=== PATIENT | female | born 1950 | race Caucasian/White ===

== ENCOUNTER 2020-08-15 03:20 | Inpatient (IN) | payer MEDICARE, BC ==
[~2020-08-15] VITALS: Ht 157.5 cm; Wt 81.6 kg
[2020-08-15 04:05] VITALS: BP 136/77
[2020-08-15] MEDS ORDERED: FLUO20CA42 PO (04:08)
[2020-08-15] MEDS ORDERED: SITA100T PO (04:08)
[2020-08-15] MEDS ORDERED: LEVO25TA9 PO (04:09)
[2020-08-15] MEDS ORDERED: OLAN5TAB3 PO (04:11)
[2020-08-15] MEDS ORDERED: BENZ1TAB7 PO (04:12)
[2020-08-15] MEDS ORDERED: QUET50TA PO (04:13)
[2020-08-15] MEDS ORDERED: BLOOD SUGAR DIAGNOSTIC 1 EACH STRIP IN ONE (04:30)
[2020-08-15] MEDS ORDERED: MAGNESIUM HYDROXIDE 30 ML UDC PO PRN (04:30)
[2020-08-15] MEDS ORDERED: MAG HYDROX/AL HYDROX/SIMETH 30 ML UDC PO PRN (04:30)
[2020-08-15] MEDS ORDERED: ACETAMINOPHEN 325 MG TABLET PO PRN (04:30)
--- NOTE | 2020-08-15 04:49 | NUR ---
ADMISSION NOTES: ADMITTED THIS 70Y/O FEMALE PATIENT DIRECT ADMIT FROM [facility], PT. ADMITTED TO GPS ON HOLD 5149 DTS, SHE WANTS TO KILL HER SELF BY USING A SCALPEL , PT. HAS CONSERVATOR BUT IN HOLD 5149 ,UPON FACE TO FACE ASSESSMENT PATIENT IS A&O X 4 DEPRESSED ,FLAT AFFECT ,GUARDED, DISHEVELLED , COOPERTIVE, DENIES SI /HI AT THIS TIME, PT. IS POOR HISTORIAN, POOR INSIGHT ,POOR JUDGEMENT , PT. REFUSED TO SIGNS ADMISSION CONSENT PAPERS ,DUE TO TIRED , BOTH MD AWARE AND NOTIFIED OF THE ADMISSION, BELONGINGS CONTRABAND WERE DONE ,PT. RIGHTS DISCUSS BY CLIENT SALES AND SERVICE OFFICER , PROVIDE THE PT. WITH HANDBOOK, AND MEDICATIONS GUIDE, ENVIRONMENTAL SAFETY CHECK DONE, ENCOURAGED PT. VERBALIZED ANY FEELING CONCERN TO STAFF, ORIENT TO UNIT POLICY, NO ACUTE DISTRESS NOTED,VITAL SIGNS WNL ,DENIES ANY PAIN AT THIS TIME,WILL CONTINUE TO MONITOR FOR Q15 SAFETY AND BEHAVIOR.
[2020-08-15 08:00] VITALS: BP 137/72
[2020-08-15] MEDS: LORAZEPAM 1 MG TABLET PO PRN (08:11)
--- NOTE | 2020-08-15 08:12 | NUR ---
RN NOTE- PT W ANXIETY RESTLESSNESS. ATIVAN 1 MG GIVEN . NOTIFIED MD OF MED RECON NEEDS COMPLETION
--- NOTE | 2020-08-15 09:00 | NUR ---
RN NOTE- PT ALERT VISIBLE ON UNIT, BLUNTED AFFECT, INTERACTIVE POOR EYE CONTACT ANXIOUS AT TIMES VAGUE +SI THOUGH DENYING PRESENTLY . STATES "I THINK ABOUT IT" MONITORING ILEANA SAFETY
[2020-08-15] MEDS: DIVALPROEX SODIUM 250 MG TABLET.DR PO SCH ×2 (12:54→16:21)
[2020-08-15] MEDS: ARIPIPRAZOLE 5 MG TABLET PO SCH (12:54)
--- NOTE | 2020-08-15 15:54 | NUR ---
Point of Contact: SW called the pt.'s sister& conservator of the person, Bernie Gonzalez [phone] to gather collateral information. Patient's Conservator of finances is Tiara Rodrigues, . Per Bernie, pt. has a Therapist, Hetal Mckeon [phone] who would like to remain informed. Per Bernie pt.s PCP is Ravi Lozoya [phone]. Pt.s Psychiatrist is Addy Garcia [phone]. Per Bernie, she has provided psychiatrist contact info to Dr. Suarez. Bernie stated she will bring copy of [facility] paperwork today when she visits. Noted. Charge Nurse made aware.
--- NOTE | 2020-08-15 15:57 | NUR ---
APS Intake # [id number]: SW made APS report for self-neglect (incident # [id number]) on 3:10 pm 08/15/2020. Pt.'s conservator informed SW that the pt. has recently been starving herself and stated to her MD, Ravi Lozoya [phone] that she has been having trouble making herself drink water. Per Bernie, the pt. asked her to bring bottle of laxatives and weight loss pills from home. Per Bernie,the pt. was hospitalized in 2011 for DTS as she starved herself and went from weighing 200 lbs. to 125 lbs. SW notified pt.'s nurse for SANDER.
--- NOTE | 2020-08-15 15:57 | NUR ---
Initial Discharge plan: The pt. currently lives alone at home [[address] [address]; [phone]] and plans to return there once ready for D/C. FINA spoke to the pt.'s conservator of the person, Bernie Carlos [phone] who is agreeable to the pt. returning to live at home alone. Bernie states she visits pt. everyday. FINA will continue to collaborate with IDT to ensure safe & proper discharge planning.
[2020-08-15 16:00] VITALS: BP 122/66
--- NOTE | 2020-08-15 16:34 | NUR ---
RN NOTIFIED THAT PT HAS BEEN CALLING [employer] TO BRING LAXATIVES WHICH SEE'S TAKEN IN PAST. BE AWARE IF [employer] BRING THINGS IN TO WATCH FOR THIS
[2020-08-15] MEDS: LEVOTHYROXINE SODIUM 25 MCG TABLET PO SCH (17:47)
[2020-08-15 19:59] VITALS: BP 127/62
[2020-08-15] MEDS: ZOLPIDEM TARTRATE 5 MG TABLET PO PRN (22:09)
--- NOTE | 2020-08-15 22:10 | NUR ---
RN NOTES: INSOMNIA PT.C/O UNABLE TO SLEEP, AMBIEN 5 MG PO PRN GIVEN PER PT. REQUEST, WILL CONTINUE TO MONITOR.
[2020-08-16 06:56] LABS: BASOPHILS % (AUTO) 0.3 % (0.0-2.0); EOSINOPHILS % (AUTO) 1.4 % (0.0-6.0); HEMATOCRIT 40 % (33-45); HEMOGLOBIN 13.7 g/dL (11.5-14.8); LYMPHOCYTES # (AUTO) 1.8 /CMM (0.8-4.8); LYMPHOCYTES % (AUTO) 27.2 % (20.0-44.0); MEAN CORPUSCULAR HGB CONC 34 g/dl (31.0-36.0); MEAN CORPUSCULAR VOLUME 88 fL (82-100); MONOCYTES # (AUTO) 0.5 /CMM (0.1-1.30); MONOCYTES % (AUTO) 7.6 % (2.0-12.0); NEUTROPHILS # (AUTO) 4.2 /CMM (1.8-8.9); NEUTROPHILS % (AUTO) 63.5 % (43.0-81.0); PLATELET COUNT (AUTO) 238 /CMM (150-450); WHITE BLOOD COUNT (AUTO) 6.6 K/uL (4.3-11.0)
[2020-08-16 07:10] LABS: CALCIUM, SERUM 8.8 mg/dL (8.5-10.1); CARBON DIOXIDE 28 mmol/L (21-32); CHLORIDE 102 mmol/L (98-107); CHOLESTEROL 188 mg/dL (<200); CREATININE 0.5 mg/dL (0.6-1.3); GLUCOSE 128 mg/dL (74-106); HDL CHOLESTEROL 50 mg/dL (40-60); LDL 103 mg/dL (0-99); SODIUM SERUM 139 mmol/L (136-145); TRIGLYCERIDES 115 mg/dL (30-150); UREA NITROGEN, BLOOD 9 mg/dL (7-18)
[2020-08-16] MEDS: LEVOTHYROXINE SODIUM 25 MCG TABLET PO SCH (07:59)
[2020-08-16 08:00] VITALS: BP 128/74
[2020-08-16] MEDS: DIVALPROEX SODIUM 250 MG TABLET.DR PO SCH ×3 (08:07→16:34)
[2020-08-16] MEDS: ARIPIPRAZOLE 5 MG TABLET PO SCH (08:07)
[2020-08-16] MEDS: LINAGLIPTIN 5 MG TABLET PO SCH (08:20)
[2020-08-16 16:00] VITALS: BP 131/69
[2020-08-16] MEDS: Z GUARD REMEDY 2 OZ OINT TP SCH ×2 (16:18→20:46)
--- NOTE | 2020-08-16 17:59 | NUR ---
RN-CO: REMINDED DR PARKER TO FAX THE CONSENT FOR PROZAC.
[2020-08-16] MEDS: FLUOXETINE HCL 20 MG CAPSULE PO SCH (18:33)
[2020-08-16 20:04] VITALS: BP 137/71
[2020-08-16] MEDS: ZOLPIDEM TARTRATE 5 MG TABLET PO PRN (22:35)
--- NOTE | 2020-08-16 22:36 | NUR ---
RN NOTES: INSOMNIA PT.C/O UNABLE TO SLEEP, AMBIEN 5 MG PO PRN GIVEN PER PT. REQUEST, WILL CONTINUE TO MONITOR.
[2020-08-17 08:00] VITALS: BP 145/77
[2020-08-17] MEDS: Z GUARD REMEDY 2 OZ OINT TP SCH ×2 (08:09→21:29)
[2020-08-17] MEDS: LINAGLIPTIN 5 MG TABLET PO SCH (08:09)
[2020-08-17] MEDS: FLUOXETINE HCL 20 MG CAPSULE PO SCH (08:09)
[2020-08-17] MEDS: DIVALPROEX SODIUM 250 MG TABLET.DR PO SCH ×3 (08:09→16:33)
[2020-08-17] MEDS: LEVOTHYROXINE SODIUM 25 MCG TABLET PO SCH (08:09)
[2020-08-17] MEDS: ARIPIPRAZOLE 5 MG TABLET PO SCH (08:09)
[2020-08-17 16:00] VITALS: BP 139/71
[2020-08-17 20:00] VITALS: BP 147/78
[2020-08-17] MEDS: ZOLPIDEM TARTRATE 5 MG TABLET PO PRN (22:58)
--- NOTE | 2020-08-17 22:59 | NUR ---
GPS-RN NOTES: INSOMNIA PATIENT C/O INABILITY TO SLEEP. PRN AMBIEN 5MG PO GIVEN PER PT'S REQUEST. WILL CONTINUE TO MONITOR.
[2020-08-18 08:00] VITALS: BP 159/80
[2020-08-18] MEDS: LEVOTHYROXINE SODIUM 25 MCG TABLET PO SCH (08:09)
[2020-08-18] MEDS: DIVALPROEX SODIUM 250 MG TABLET.DR PO SCH ×3 (08:09→17:30)
[2020-08-18] MEDS: LINAGLIPTIN 5 MG TABLET PO SCH (08:09)
[2020-08-18] MEDS: FLUOXETINE HCL 20 MG CAPSULE PO SCH (08:09)
[2020-08-18] MEDS: ARIPIPRAZOLE 5 MG TABLET PO SCH (08:09)
[2020-08-18] MEDS: Z GUARD REMEDY 2 OZ OINT TP SCH ×2 (08:11→21:24)
--- NOTE | 2020-08-18 11:16 | NUR ---
gps well logging operator mud analysis: psych f/u seen by dr. grider at this time.
[2020-08-18 16:00] VITALS: BP 150/86
[2020-08-18] MEDS: BENZTROPINE MESYLATE (1 MG) 1 MG TABLET PO SCH (17:30)
[2020-08-18 20:00] VITALS: BP 163/76
[2020-08-18] MEDS: LORAZEPAM 1 MG TABLET PO PRN (20:07)
--- NOTE | 2020-08-18 20:10 | NUR ---
GPS-RN NOTES: ANXIETY PATIENT C/O FEELING ANXIOUS. PRN ATIVAN 1MG PO GIVEN. WILL CONTINUE TO MONITOR FOR PATIENT'S SAFETY.
[2020-08-18 21:00] VITALS: BP 142/86
[2020-08-19 08:00] VITALS: BP 123/78
[2020-08-19] MEDS: FLUOXETINE HCL 20 MG CAPSULE PO SCH (08:13)
[2020-08-19] MEDS: DIVALPROEX SODIUM 250 MG TABLET.DR PO SCH ×3 (08:13→17:24)
[2020-08-19] MEDS: LINAGLIPTIN 5 MG TABLET PO SCH (08:13)
[2020-08-19] MEDS: LEVOTHYROXINE SODIUM 25 MCG TABLET PO SCH (08:13)
[2020-08-19] MEDS: ARIPIPRAZOLE 5 MG TABLET PO SCH (08:13)
[2020-08-19] MEDS: BENZTROPINE MESYLATE (1 MG) 1 MG TABLET PO SCH ×2 (08:14→17:23)
[2020-08-19] MEDS: Z GUARD REMEDY 2 OZ OINT TP SCH ×2 (08:16→21:24)
[2020-08-19] MEDS ORDERED: CLOTRIMAZOLE 1% 15 GM TUBE TP SCH (09:00)
--- NOTE | 2020-08-19 09:57 | NUR ---
WOUND CARE CONSULT: PT PRESENTS WITH VERY RED RASH AND IRRITATED SKIN TO ABDOMINAL/GROIN FOLDS, PRESENT ON ADMISSION. RECOMMENDATIONS MADE FOR SKIN CARE AND PROTECTION. DISCUSSED WITH NURSING STAFF. PT IS AMBULATORY. IN AGREEMENT WITH PLAN OF CARE. Addendum: 08/19/20 at 0958 by SANTANA TENA WNDNU Amended: Links added.
--- NOTE | 2020-08-19 10:14 | NUR ---
Conservator Contact: FINA called the pt's sister and conservator of the person, Bernie Gonzalez ([phone]), and discussed the pts care. FINA provided her with information about the pts behaviors and went over her diagnosis and the pts medications. FINA confirmed that the plan is for the pt to return home.
--- NOTE | 2020-08-19 11:02 | NUR ---
Outpatient Psychiatrist Contact: SW received a call from Dr. Schmitz's office ([phone]) stating that a call needs to be scheduled with the pts treating psychiatrist as making contact has been difficult. SW stated that she would speak to the MD and call back regarding availability.
[2020-08-19] MEDS: CLOTRIMAZOLE/BETAMETASONE DIPROPIONATE 15 GM TUBE TP SCH (18:00)
--- NOTE | 2020-08-19 18:36 | NUR ---
med compliant,sister in to visit.
[2020-08-19 20:00] VITALS: BP 154/84
[2020-08-19] MEDS: ZOLPIDEM TARTRATE 5 MG TABLET PO PRN (21:50)
--- NOTE | 2020-08-19 21:58 | NUR ---
GPS-RN NOTES: INSOMNIA PATIENT C/O INABILITY TO SLEEP. PRN AMBIEN 5MG PO GIVEN PER PT'S REQUEST. WILL CONTINUE TO MONITOR.
--- NOTE | 2020-08-20 07:30 | NUR ---
PT RECEIVED RESTING COMFORTABLY IN BED. NO S/S OR C/O PAIN OR DISTRESS NOTED. WILL CONTINUE PLAN OF CARE.
[2020-08-20 08:00] VITALS: BP 150/94
[2020-08-20] MEDS: BENZTROPINE MESYLATE (1 MG) 1 MG TABLET PO SCH ×2 (08:11→16:30)
[2020-08-20] MEDS: FLUOXETINE HCL 20 MG CAPSULE PO SCH (08:11)
[2020-08-20] MEDS: ARIPIPRAZOLE 5 MG TABLET PO SCH (08:11)
[2020-08-20] MEDS: DIVALPROEX SODIUM 250 MG TABLET.DR PO SCH ×3 (08:11→16:30)
[2020-08-20] MEDS: LEVOTHYROXINE SODIUM 25 MCG TABLET PO SCH (08:11)
[2020-08-20] MEDS: LINAGLIPTIN 5 MG TABLET PO SCH (08:11)
[2020-08-20] MEDS: CLOTRIMAZOLE/BETAMETASONE DIPROPIONATE 15 GM TUBE TP SCH ×2 (08:18→16:34)
[2020-08-20] MEDS: Z GUARD REMEDY 2 OZ OINT TP SCH ×2 (08:18→21:26)
[2020-08-20 16:00] VITALS: BP 130/75
--- NOTE | 2020-08-20 18:07 | NUR ---
CHANGE OF SHIFT REPORT PT RESTING COMFORTABLY IN BED. NO S/S OR C/O PAIN OR DISTRESS NOTED. PT KEPT CLEAN, AND COMFORTABLE. NO SIGNIFICANT CHANGES SINCE PREVIOUS SHIFT.
--- NOTE | 2020-08-20 19:30 | NUR ---
GPS RN NOTE, RECEIVED PATIENT AWAKE AND IN BED, NO S/S OR COMPLAINTS OF PAIN AT THIS TIME. PATIENT IS DISPLAYING NO S/S OF APPARENT DISTRESS AT THIS TIME. PATIENT BREATHING IS UNLABORED WITH EQUAL RISE AND FALL OF THE CHEST. PATIENT IS ALERT AND ORIENTED X 3 ON ROOM AIR WITH A SPO2 97%. PATIENT IS COMPLIANT WITH MEDICATIONS, FORGETFUL, ANXIOUS, MAKES NEEDS KNOWN, AND NEEDS REDIRECTION. PATIENT DENIES SUICIDAL AND HOMICIDAL IDEATIONS AT THIS TIME. PATIENT ASSISTED WITH TURNING AND REPOSITIONING Q2HR AND PRN FOR COMFORT AND CIRCULATION. PATIENT HAS NO NEEDS AT THIS TIME. PATIENT EDUCATED ON THE USE OF THE CALL ESCUDERO. PATIENT BED SIDE RAILS UP X 2 FOR SAFETY. PATIENT BED IS LOCKED, LOW, WITH BED ALARM ON. WILL CONTINUE TO MONITOR THIS PATIENT Q15 MINUTES WITH THE HELP OF STAFF TO MAINTAIN SAFETY.
[2020-08-20 20:00] VITALS: BP 140/72
[2020-08-20 20:59] VITALS: BP 140/72
[2020-08-21] MEDS: ZOLPIDEM TARTRATE 5 MG TABLET PO PRN ×2 (00:17→23:58)
--- NOTE | 2020-08-21 00:17 | NUR ---
MS RN NOTES C/O INSOMNIA,AMBIEN 5MG ,1 TAB PO GIVEN ORDERED AND PER PATIENT REQUEST.WILL MONITOR HOURS OF SLEEP.
--- NOTE | 2020-08-21 06:35 | NUR ---
GPS RN NOTES CALM AND COOPERATIVE THRU OUT SHIFT SLEEP WELL WITH AMBIEN 5MG
[2020-08-21 08:00] VITALS: BP 134/75
[2020-08-21] MEDS: LINAGLIPTIN 5 MG TABLET PO SCH (08:14)
[2020-08-21] MEDS: BENZTROPINE MESYLATE (1 MG) 1 MG TABLET PO SCH ×2 (08:14→17:08)
[2020-08-21] MEDS: ARIPIPRAZOLE 5 MG TABLET PO SCH (08:14)
[2020-08-21] MEDS: DIVALPROEX SODIUM 250 MG TABLET.DR PO SCH ×3 (08:14→17:08)
[2020-08-21] MEDS: FLUOXETINE HCL 20 MG CAPSULE PO SCH (08:14)
[2020-08-21] MEDS: LEVOTHYROXINE SODIUM 25 MCG TABLET PO SCH (08:14)
[2020-08-21] MEDS: CLOTRIMAZOLE/BETAMETASONE DIPROPIONATE 15 GM TUBE TP SCH ×2 (09:20→17:08)
[2020-08-21] MEDS: Z GUARD REMEDY 2 OZ OINT TP SCH ×2 (09:20→20:51)
--- NOTE | 2020-08-21 14:41 | NUR ---
Conservator Contact: SW called the pt's sister and conservator of the person, Bernie Nikhilraj ([phone]), and went over the pts current treatment and stated that there is no discharge date as of right now.
[2020-08-21 16:00] VITALS: BP 131/72
[2020-08-21 20:00] VITALS: BP 153/72
[2020-08-21 20:07] VITALS: BP 153/72
--- NOTE | 2020-08-21 23:59 | NUR ---
RN NOTES: INSOMNIA PT.C/O UNABLE TO SLEEP, AMBIEN 5 MG PO PRN GIVEN PER PT. REQUEST, WILL CONTINUE TO MONITOR.
[2020-08-22] MEDS: LEVOTHYROXINE SODIUM 25 MCG TABLET PO SCH (07:52)
[2020-08-22 08:00] VITALS: BP 128/74
[2020-08-22] MEDS: LINAGLIPTIN 5 MG TABLET PO SCH (08:09)
[2020-08-22] MEDS: ARIPIPRAZOLE 5 MG TABLET PO SCH (08:09)
[2020-08-22] MEDS: BENZTROPINE MESYLATE (1 MG) 1 MG TABLET PO SCH ×2 (08:09→16:13)
[2020-08-22] MEDS: DIVALPROEX SODIUM 250 MG TABLET.DR PO SCH ×3 (08:09→16:13)
[2020-08-22] MEDS: Z GUARD REMEDY 2 OZ OINT TP SCH ×2 (08:10→21:45)
[2020-08-22] MEDS: Fluoxetine 10 mg capsule PO SCH (08:31)
[2020-08-22] MEDS: CLOTRIMAZOLE/BETAMETASONE DIPROPIONATE 15 GM TUBE TP SCH ×2 (08:56→17:18)
[2020-08-22 16:00] VITALS: BP 151/90
[2020-08-22 20:00] VITALS: BP 158/80
--- NOTE | 2020-08-22 20:20 | NUR ---
GPS RN NOTES VISIBLE IN THE UNIT. WALKING IN HALLWAY. CALM AND COOPERATIVE. VITALS STABLE
[2020-08-22 20:22] VITALS: BP 158/80
[2020-08-22] MEDS: ZOLPIDEM TARTRATE 5 MG TABLET PO PRN (23:40)
[2020-08-23] MEDS: ZOLPIDEM TARTRATE 5 MG TABLET PO PRN ×2 (00:20→23:05)
[2020-08-23 08:00] VITALS: BP 126/64
[2020-08-23] MEDS: Z GUARD REMEDY 2 OZ OINT TP SCH ×2 (08:27→21:24)
[2020-08-23] MEDS: CLOTRIMAZOLE/BETAMETASONE DIPROPIONATE 15 GM TUBE TP SCH ×2 (08:28→16:37)
[2020-08-23] MEDS: Fluoxetine 10 mg capsule PO SCH (08:33)
[2020-08-23] MEDS: ARIPIPRAZOLE 5 MG TABLET PO SCH (08:33)
[2020-08-23] MEDS: LEVOTHYROXINE SODIUM 25 MCG TABLET PO SCH (08:34)
[2020-08-23] MEDS: DIVALPROEX SODIUM 250 MG TABLET.DR PO SCH ×3 (08:34→16:35)
[2020-08-23] MEDS: BENZTROPINE MESYLATE (1 MG) 1 MG TABLET PO SCH ×2 (08:37→16:35)
[2020-08-23] MEDS: LINAGLIPTIN 5 MG TABLET PO SCH (13:01)
[2020-08-23 16:00] VITALS: BP 132/77
[2020-08-23 19:44] VITALS: BP 141/86
--- NOTE | 2020-08-23 23:06 | NUR ---
GPS RN NOTES: PATIENT REQUESTED FOR SLEEP MEDICATION AMBIEN 5MG/1TAB GIVEN PO PRN ORDERED AT 2305. WILL CONTINUE TO MONITOR.
--- NOTE | 2020-08-24 06:39 | NUR ---
GPS RN CLOSING NOTES: PATIENT IS CURRENTLY SLEEPING COMFORTABLY IN BED. PATIENT SLEPT 9HRS THIS SHIFT. PATIENT WAS MED COMPLIANT THIS SHIFT. NO S/S OF DISTRESS. RESPIRATION EVEN AND UNLABORED WITH EQUAL RISE AND FALL OF THE CHEST, ON ROOM AIR. BED IN LOWEST POSITION AND LOCKED WITH SIDE RAILS UP X2. CALL ESCUDERO WITHIN REACH. ALL PATIENT CARE NEEDS HAVE BEEN MET ANTICIPATED. WILL CONTINUE TO MONITOR FOR SAFETY, MOOD AND BEHAVIOR AND ENDORSE TO AM SHIFT
[2020-08-24 08:00] VITALS: BP 127/80
--- NOTE | 2020-08-24 08:00 | NUR ---
RN OPENING NOTE PT AWAKE IN BED AWAKE A/O X3. FLAT AFFECT, APPEARS DEPRESSED, PASSIVE, WITHDRAWN, GUARDED. DENIES SI/HI/AV/AH AT THIS TIME, DENIES PAIN. RESPIRATION EVEN AND UNLABORED WITH EQUAL RISE AND FALL OF THE CHEST, ON ROOM AIR. WILL CONTINUE TO MONITOR Q15 MIN FOR SAFETY, MOOD AND BEHAVIOR.
[2020-08-24] MEDS: LEVOTHYROXINE SODIUM 25 MCG TABLET PO SCH (08:51)
[2020-08-24] MEDS: ARIPIPRAZOLE 5 MG TABLET PO SCH (08:51)
[2020-08-24] MEDS: FLUOXETINE HCL 20 MG CAPSULE PO SCH (08:51)
[2020-08-24] MEDS: DIVALPROEX SODIUM 250 MG TABLET.DR PO SCH ×3 (08:51→16:22)
[2020-08-24] MEDS: LINAGLIPTIN 5 MG TABLET PO SCH (08:51)
[2020-08-24] MEDS: BENZTROPINE MESYLATE (1 MG) 1 MG TABLET PO SCH ×2 (08:53→16:22)
[2020-08-24] MEDS: Z GUARD REMEDY 2 OZ OINT TP SCH ×2 (09:00→21:44)
[2020-08-24] MEDS: CLOTRIMAZOLE/BETAMETASONE DIPROPIONATE 15 GM TUBE TP SCH ×2 (09:00→16:24)
[2020-08-24 16:09] VITALS: BP 156/72
--- NOTE | 2020-08-24 18:12 | NUR ---
RN CLOSING NOTE PT AWAKE IN BED AWAKE A/O X3. FLAT AFFECT, APPEARS DEPRESSED, PASSIVE, WITHDRAWN, GUARDED. DENIES SI/HI/AV/AH AT THIS TIME, DENIES PAIN. RESPIRATION EVEN AND UNLABORED WITH EQUAL RISE AND FALL OF THE CHEST, ON ROOM AIR. REPORT TO BE GIVEN TO NIGHT NURSE FOR SANDER.
[2020-08-24 20:40] VITALS: BP 128/70
[2020-08-25] MEDS: ZOLPIDEM TARTRATE 5 MG TABLET PO PRN (00:36)
--- NOTE | 2020-08-25 00:37 | NUR ---
GPS RN NOTES:- INSOMNIA PATIENT C/O DIFFICULTY FALLING ASLEEP. REQUESTED FOR SLEEP MEDICATION AMBIEN 5MG/1TAB GIVEN PO PRN ORDERED AT 0036. WILL CONTINUE TO MONITOR FOR SLEEP WITHIN 1 HOUR.
--- NOTE | 2020-08-25 06:40 | NUR ---
GPS RN NOTE PATIENT SLEEPING IN BED A/OX3. SKIN IS PINK, WARM TO TOUCH. SKIN IS IMPROVING. TOOK PICTURE AND PUT IN CHART. WILL ENDORSE RN TO CONTINUE TREATMENT ORDERED.
--- NOTE | 2020-08-25 06:43 | NUR ---
GPS RN NOTE PATIENT SLEEPING IN BED A/OX3. ABDOMINAL FOLD SKIN IS PINK, WARM TO TOUCH. SKIN IS IMPROVING. TOOK PICTURE AND PUT IN CHART. WILL ENDORSE RN TO CONTINUE TREATMENT ORDERED.
[2020-08-25] MEDS: LEVOTHYROXINE SODIUM 25 MCG TABLET PO SCH (07:47)
[2020-08-25 08:00] VITALS: BP 135/89
[2020-08-25] MEDS: FLUOXETINE HCL 20 MG CAPSULE PO SCH (08:38)
[2020-08-25] MEDS: BENZTROPINE MESYLATE (1 MG) 1 MG TABLET PO SCH ×2 (08:38→16:15)
[2020-08-25] MEDS: ARIPIPRAZOLE 5 MG TABLET PO SCH (08:38)
[2020-08-25] MEDS: DIVALPROEX SODIUM 250 MG TABLET.DR PO SCH ×3 (08:38→16:15)
[2020-08-25] MEDS: LINAGLIPTIN 5 MG TABLET PO SCH (08:40)
[2020-08-25] MEDS: Z GUARD REMEDY 2 OZ OINT TP SCH ×2 (08:41→21:26)
[2020-08-25] MEDS: CLOTRIMAZOLE/BETAMETASONE DIPROPIONATE 15 GM TUBE TP SCH ×2 (08:52→16:16)
--- NOTE | 2020-08-25 12:33 | NUR ---
RN NOTE: CONSTIPATION PT C/O CONSTIPATION. MEDICATED WITH MILK OF MAGNESIA PO PRN.
[2020-08-25 16:00] VITALS: BP 147/84
[2020-08-25 20:09] VITALS: BP 127/70
[2020-08-26] MEDS: ZOLPIDEM TARTRATE 5 MG TABLET PO PRN (00:07)
--- NOTE | 2020-08-26 00:10 | NUR ---
GPS RN NOTE: PATIENT REQUESTING FOR MEDICATION FOR SLEEP, AMBIEN 5MG 1 TAB ORAL GIVEN PER MD ORDER. WILL CONTINUE TO MONITOR THROUGHOUT SHIFT.
[2020-08-26 08:00] VITALS: BP_SYST 110; BP_SYST 131; BP_DIAS 64; BP_DIAS 79
[2020-08-26] MEDS: LEVOTHYROXINE SODIUM 25 MCG TABLET PO SCH (08:23)
[2020-08-26] MEDS: ARIPIPRAZOLE 5 MG TABLET PO SCH (08:53)
[2020-08-26] MEDS: DIVALPROEX SODIUM 250 MG TABLET.DR PO SCH ×3 (08:54→16:02)
[2020-08-26] MEDS: BENZTROPINE MESYLATE (1 MG) 1 MG TABLET PO SCH ×2 (08:54→16:02)
[2020-08-26] MEDS: FLUOXETINE HCL 20 MG CAPSULE PO SCH (08:54)
[2020-08-26] MEDS: LINAGLIPTIN 5 MG TABLET PO SCH (08:54)
[2020-08-26] MEDS: Z GUARD REMEDY 2 OZ OINT TP SCH ×2 (08:54→21:15)
[2020-08-26] MEDS: CLOTRIMAZOLE/BETAMETASONE DIPROPIONATE 15 GM TUBE TP SCH (08:54)
--- NOTE | 2020-08-26 09:00 | NUR ---
RN NOTE- PT QUIET CALM WITHDRAWN POOR EYE CONTACT FLAT AFFECT CONFUSED THOUGH DIRECTABLE AND MAKES NEEDS KNOWN. DENIES ALL AT PRESENT MED COMPLIANT
--- NOTE | 2020-08-26 09:20 | NUR ---
Conservator Contact: SW called the pt's sister and conservator of the person, Bernie Gonzalez ([phone]), and informed her that the pt is going to be discharged tomorrow. SW asked what time would be best for the pt to be picked up and the conservator stated that the pt can be picked up around 11AM.
[2020-08-26 16:00] VITALS: BP 138/65
[2020-08-27] MEDS: ZOLPIDEM TARTRATE 5 MG TABLET PO PRN (01:43)
--- NOTE | 2020-08-27 01:45 | NUR ---
GPS RN NOTES: PATIENT REQUESTED FOR SLEEP MEDICATION AMBIEN 5MG/1TAB GIVEN PO PRN ORDERED AT 0143. WILL CONTINUE TO MONITOR.
--- NOTE | 2020-08-27 06:50 | NUR ---
GPS RN CLOSING NOTES: PATIENT IS CURRENTLY SLEEPING COMFORTABLY IN BED. SLEPT 7HRS THIS SHIFT. MED COMPLIANT THIS SHIFT. PATIENT IS SCHEDULED FOR DISCHARGE AT 12PM TO HOME IN [place]. NO S/S OF DISTRESS. RESPIRATION EVEN AND UNLABORED WITH EQUAL RISE AND FALL OF THE CHEST, ON ROOM AIR. BED IN LOWEST POSITION AND LOCKED WITH SIDE RAILS UP X2. CALL ESCUDERO WITHIN REACH. ALL PATIENT CARE NEEDS HAVE BEEN MET ANTICIPATED. WILL CONTINUE TO MONITOR FOR SAFETY, MOOD AND BEHAVIOR AND ENDORSE TO AM SHIFT.
[2020-08-27 08:00] VITALS: BP 103/64
[2020-08-27] MEDS: LEVOTHYROXINE SODIUM 25 MCG TABLET PO SCH (08:18)
[2020-08-27] MEDS: Z GUARD REMEDY 2 OZ OINT TP SCH (09:00)
[2020-08-27] MEDS: LINAGLIPTIN 5 MG TABLET PO SCH (09:03)
[2020-08-27] MEDS: ARIPIPRAZOLE 5 MG TABLET PO SCH (09:03)
[2020-08-27] MEDS: DIVALPROEX SODIUM 250 MG TABLET.DR PO SCH (09:04)
[2020-08-27] MEDS: BENZTROPINE MESYLATE (1 MG) 1 MG TABLET PO SCH (09:04)
[2020-08-27] MEDS: FLUOXETINE HCL 20 MG CAPSULE PO SCH (09:04)
--- NOTE | 2020-08-27 12:21 | NUR ---
Discharge Note: Pt will be discharged back to her home located at [address] [facility] [address]; ([phone]). Pts sister, Bernie Gonzalez ([phone]), will tile picker the pt around 12pm. Upon discharge, pt appears to be alert and oriented x4 (time, place, self and situation). Pt appears to be in a euthymic mood and presents with a distressed affect. Pt denies suicidal and homicidal ideation as well as auditory and visual hallucinations. Pt will be under the care of her psychiatrist, Dr. Addy Schmitz, located at [address] [facility] [address], [place] [address]; . Pt will also be under the care of registry rn, Dr. Dino Lozoya, located at [address] [place] [address]; . Pts multidisciplinary form and exit care form were signed, completed, and a copy was provided to the pt.
--- NOTE | 2020-08-27 12:30 | NUR ---
Outpatient Psychiatrist Contact: FINA called Dr. Schmitz's office ([phone]) and made an appointment for the pt to be seen the following day 08/28/20 at 12pm. FINA also faxed notes to his fax number: [phone].
== END 2020-08-27 12:05 | disposition home or self-care (01) | DRG 885 ==
LOC: GPS 03:20
PROVIDERS: ADMIT Psychiatry & Neurology Psychiatry; ATTEND Registered Nurse
DX: F25.0 Schizoaffective disorder, bipolar type (principal); F41.9 Anxiety disorder, unspecified; E66.9 Obesity, unspecified; E11.9 Type 2 diabetes mellitus without complications; Z68.32 Body mass index [BMI] 32.0-32.9, adult; Z91.81 History of falling; Z81.8 Family history of other mental and behavioral disorders; Z73.6 Limitation of activities due to disability; R53.1 Weakness; R27.8 Other lack of coordination; E03.9 Hypothyroidism, unspecified
CPT/HCPCS: 36415; 80048-TC; 80061-TC; 80164-TC; 82962-TC; 85025-TC; 87081-TC; 97112-TC; 97116-TC